=== PATIENT | female | born 1955 | race Caucasian/White ===

== ENCOUNTER → 2017-09-26 | Outpatient (CLI) | payer OTHER ==
[~2017-09-26] MED LIST: ASCO500T3 PO; ATV/1 PO; ATV1 PO; BUSP15TA70 PO; CHOL400T PO; CYCL10TA6 PO; DIPH25TA24 PO; FLUT0.15 NAE; FURO-85 PO; MAGNESIUM CITRATE PO; MULT-506 PO; OXYC-57 PO; OXYC40TA34 PO; POLYSOL4 OP; PRLSR20 PO; PYRIDOXINE PO; REMIFEMIN PO; RXC5 PO; SALMON; SENNTAB23 PO; SENNTAB4 PO; SODIENE PR; TEMA-79 PO; VALA500T39 PO
[2017-09-26 17:50] LABS: HEMATOCRIT 43.8 % (37-47); HEMOGLOBIN 14.9 g/dL (12.0-16.0); MEAN CELL VOLUME 95.8 fL (80-100); MEAN CORPUSCULAR HEMOGLOBIN 32.6 pg (25-34); MEAN PLATELET VOLUME 10.4 fL (7.4-10.4); PLATELET COUNT 244 K/uL (130-400); RED CELL DISTRIBUTION WIDTH CV 13.2 % (11.5-14.5); WHITE BLOOD COUNT 5.68 K/uL (4.8-10.8)
[2017-09-26 18:34] LABS: ALT/SGPT 43 U/L (12-78); AST/SGOT 18 U/L (15-37); BLOOD UREA NITROGEN 16 mg/dl (7-18); CALCIUM 8.9 mg/dl (8.5-10.1); CARBON DIOXIDE 27 mmol/L (21-32); CREATININE 0.75 mg/dl (0.60-1.20); GLUCOSE 98 mg/dl (70-99); POTASSIUM 3.9 mmol/L (3.5-5.1); SODIUM 135 mmol/L (136-145)
[2017-09-26 18:36] LABS: ALKALINE PHOSPHATASE 85 U/L (45-117); TOTAL PROTEIN 6.6 gm/dl (6.4-8.2)
== END | disposition home or self-care (01) ==
LOC: C.LABMFLN 12:28
PROVIDERS: ATTEND Family Medicine
DX: K80.20 Calculus of gallbladder without cholecystitis without obstruction (principal)

== ENCOUNTER 2018-09-19 05:49 | Inpatient (IN) ==
--- NOTE | 2018-09-08 12:51 | PAT Medication Instructions ---
Medication Instructions Date of Service September 08, 2018 Home Medications Magnesium Citrate + Vitamin B 6 1 dose PO BID bupropion HCl 75 mg PO QAM buspirone 15 mg PO TID calcitonin (salmon) 1 spray INTRANASAL DAILY calcium carbonate [Calcium 600] 600 mg PO DAILY cholecalciferol (vitamin D3) 1,000 unit PO DAILY cyclobenzaprine 10 mg PO TID PRN docusate sodium [Stool Softener] 6 tab PO BID fluticasone propionate 1 spray INTRANASAL HS furosemide [Lasix] 20 mg PO QAM lorazepam [Ativan] 0.5 mg PO UD PRN omeprazole magnesium [Prilosec OTC] 20 mg PO BID oxycodone [OxyContin] 40 mg PO BID PRN oxycodone-acetaminophen [Percocet] 1 tab PO UD PRN sennosides [Senna Laxative] 6 tab PO BID PRN temazepam [Restoril] 15 mg PO HS PRN valacyclovir [Valtrex] 500 mg PO BID DO NOT take the morning of surgery Magnesium Citrate + Vitamin B 6 1 dose PO BID calcitonin (salmon) 1 spray INTRANASAL DAILY calcium carbonate [Calcium 600] 600 mg PO DAILY cholecalciferol (vitamin D3) 1,000 unit PO DAILY cyclobenzaprine 10 mg PO TID PRN docusate sodium [Stool Softener] 6 tab PO BID furosemide [Lasix] 20 mg PO QAM sennosides [Senna Laxative] 6 tab PO BID PRN Take morning of surgery With a small sip of water, OTHERWISE NOTHING TO EAT OR DRINK AFTER MIDNIGHT: bupropion HCl 75 mg PO QAM buspirone 15 mg PO TID lorazepam [Ativan] 0.5 mg PO UD PRN (if needed) omeprazole magnesium [Prilosec OTC] 20 mg PO BID oxycodone [OxyContin] 40 mg PO BID PRN (okay to take up to 4 hours prior to surgery if needed) oxycodone-acetaminophen [Percocet] 1 tab PO UD PRN (okay to take up to 4 hours prior to surgery if needed) valacyclovir [Valtrex] 500 mg PO BID Take evening before surgery Magnesium Citrate + Vitamin B 6 1 dose PO BID buspirone 15 mg PO TID cyclobenzaprine 10 mg PO TID PRN docusate sodium [Stool Softener] 6 tab PO BID fluticasone propionate 1 spray INTRANASAL HS lorazepam [Ativan] 0.5 mg PO UD PRN (if needed) omeprazole magnesium [Prilosec OTC] 20 mg PO BID oxycodone [OxyContin] 40 mg PO BID PRN (if needed) oxycodone-acetaminophen [Percocet] 1 tab PO UD PRN (if needed) sennosides [Senna Laxative] 6 tab PO BID PRN (if needed) temazepam [Restoril] 15 mg PO HS PRN (if needed) valacyclovir [Valtrex] 500 mg PO BID Other Notes If you have any questions please call us at [phone] or [phone] or [phone] or [phone]
--- NOTE | 2018-09-08 13:25 | Anesthesiology Consultation ---
Date of Service September 08, 2018 Assessment & Plan (1) Encounter for pre-operative examination: Chart Review Chart Review: Acceptable Risk for Surgery and Patient seen in Pre Admission Testing Teaching & Discussion Pre-Anesthesia Teaching/Discussion Notes: Instructed NPO after midnight before surgery,except medications with 15 cc of water. Medication instructions provided according to the PAT guidelines. History Surgery Operation Date: 09/19/18 07:45 Proposed Procedures p L3-L5 Decomprssion and Fusion, Possible L2-L5 - Sabas Mckeon DO Height/Weight Height: 5 ft Weight: 51 kg Allergies Allergy/AdvReac Type Severity Reaction Status Date / Time Bactrim Allergy Unknown RASH Verified 04/25/15 05:36 sulfamethoxazole Allergy Unknown RASH Verified 09/02/18 11:04 trimethoprim Allergy Unknown RASH Verified 09/02/18 11:04 Medications Home Medications Medication Instructions Recorded Confirmed Last Taken Magnesium Citrate + Vitamin B 6 1 dose PO BID 09/02/18 09/02/18 Unknown bupropion HCl 75 mg PO QAM 09/02/18 09/02/18 09/02/18 buspirone 15 mg PO TID 09/02/18 09/02/18 09/02/18 calcitonin (salmon) 1 spray INTRANASAL DAILY 09/02/18 09/02/18 09/02/18 calcium carbonate [Calcium 600] 600 mg PO DAILY 09/02/18 09/02/18 Unknown cholecalciferol (vitamin D3) 1,000 unit PO DAILY 09/02/18 09/02/18 Unknown [Vitamin D3] cyclobenzaprine 10 mg PO TID PRN 09/02/18 09/02/18 Unknown docusate sodium [Stool Softener] 6 tab PO BID 09/02/18 09/02/18 Unknown fluticasone propionate 1 spray INTRANASAL HS 09/02/18 09/02/18 Unknown furosemide [Lasix] 20 mg PO QAM 09/02/18 09/02/18 09/02/18 lorazepam [Ativan] 0.5 mg PO UD PRN 09/02/18 09/02/18 Unknown omeprazole magnesium [Prilosec OTC] 20 mg PO BID 09/02/18 09/02/18 09/02/18 oxycodone [OxyContin] 40 mg PO BID PRN 09/02/18 09/02/18 09/02/18 oxycodone-acetaminophen [Percocet] 1 tab PO UD PRN 09/02/18 09/02/18 Unknown sennosides [Senna Laxative] 6 tab PO BID PRN 09/02/18 09/02/18 Unknown temazepam [Restoril] 15 mg PO HS PRN 09/02/18 09/02/18 Unknown valacyclovir [Valtrex] 500 mg PO BID 09/02/18 09/02/18 09/02/18 cyclosporine [Restasis] 1 drp OPHTHALMIC (EYE) DAILY 09/08/18 09/08/18 Unknown Past Medical History Medical History Acid reflux CONTROLLED Anxiety Chronic constipation Degenerative disc disease Depression Dysphagia ONLY OCCURS WHEN PATIENT EXTREMELY FATIGUED UNCHANGED X YEARS S/P ACDF (SURGEON AWARE) Emphysema lung PER CXR Hx of cervical cancer "PRE-CANCEROUS" Mild cognitive impairment ?MEDICATION RELATED Multiple hereditary exostoses S/P MULTIPLE ORTHOPEDIC SURGERIES/REMOVALS; PARTICULARLY SENSITIVE LUE Scoliosis Past Family History Family History Grandmother Family history of breast cancer Past Surgical History Surgical History History of cholecystectomy History of colonoscopy History of endoscopy History of neck surgery Anterior cervical C6 corpectomy, C5-C7 fusion= 04/25/15= Grade view 1, MAC 3, ETT 7.0 at [facility] (atraumatic DL x1 without neck flexion/extension) History of orthopedic surgery MULTIPLE DUE TO MULTIPLE HEREDITARY EXOSTOSES Past Anesthesia History Other Per patient, low BP in PACU with prior surgery (unsure of what surgery/when); SDS turned into overnight stay x 1; BP controlled with medical management and patient discharged next day without issue. No similar issue noted per subsequent anesthesia/discharge records with anterior cervical C6 corpectomy, C5-C7 fusion 04/25/15 at [facility]* Daughter- PONV History of PONV Yes Motion Sickness Screening History of Motion Sickness: No Social History Smoking Status: Former smoker tobacco type: cigarettes Do You Dip or Chew Tobacco: No Smoking End Date: QUIT 5+ YEARS AGO Hx Alcohol Use: No Hx Substance Use: No substance use type: does not use Exercise / Class Metabolic Activity II 4-5 Yardwork/Stairs/Walk up hill Review of Systems Patient reports LBP with hip radiation; + LE weakness. Patient denies chest pain, shortness of breath, dyspnea on exertion, cough, wheezing, palpitations. Physical Exam Vital Signs VITALS BP 116/75 P 69 TEMP 98.1 SP02 97%RA RESP 16 PHYSICAL Full neck and c-spine range of motion. Full TMJ range of motion. TMD 3.5 finger breaths Mallampati Score 1 Dentition: full dentures upper/lower; edentulous Lungs: clear throughout to auscultation Cardiac: regular rate and rhythm, no murmurs noted Spine: normal Carotid arteries: negative bruit Extremities: no edema Testing Electrocardiogram Date: 11/07/17 Findings: + NSR @ (60) Chest X-Ray Date: 09/08/18 Findings: + NAD Negative chest. Mild emphysematous change Laboratory Results Blood Type AB Positive 09/08/18 13:45 Antibody Screen NEGATIVE 09/08/18 13:45 PT 10.7 Seconds (9.0-12.0) 09/08/18 13:45 INR 1.0 (0.9-1.1) 09/08/18 13:45 APTT 23.7 Seconds (21.0-31.0) 09/08/18 13:45 Urine Color Yellow 09/08/18 13:45 Urine Appearance Clear (Clear) 09/08/18 13:45 Urine pH 5.0 (4.5-7.5) 09/08/18 13:45 Ur Specific [place] 1.014 (1.000-1.030) 09/08/18 13:45 Urine Protein Negative (Negative) 09/08/18 13:45 Urine Glucose (UA) Negative (Negative) 09/08/18 13:45 Urine Ketones Negative (Negative) 09/08/18 13:45 Urine Nitrite Negative (Negative) 09/08/18 13:45 Ur Leukocyte Esterase Negative (Negative) 09/08/18 13:45 08/05/18 WBC 6.92 H/H 15.1/43.7 PLATELETS 238 SODIUM 139 POTASSIUM 3.9 CHLORIDE 107 CO2 24 BUN 12 CREATININE 0.58 GLUCOSE 88
--- NOTE | 2018-09-08 14:12 | XRay Report ---
XR chest Pre-admission PA/Lat CLINICAL HISTORY: pat preoperative evaluation COMPARISON STUDY: 03/30/2015 FINDINGS: The bones soft tissues and hemidiaphragms are normal. The cardiomediastinal silhouette is n ormal. The lungs are clear. The pulmonary vasculature is normal. Mild emphysematous change IMPRESSION: Negative chest. Mild emphysematous change The above report was generated using voice recognition software. It may contain grammatical, syntax or spelling errors. Electronically signed by: Mario Walters M.D. 09/08/2018 2:11 PM
[2018-09-08 14:54] LABS: Appearance Urine Clear (Clear); Bilirubin Urine Negative (Negative); Blood Urine Negative (Negative); Color Urine Yellow; Glucose Urine UA Negative (Negative); Ketones Urine Negative (Negative); Leukocyte Esterase Urine Negative (Negative); Nitrite Urine Negative (Negative); Protein Urine Negative (Negative); Specific Gravity Urine 1.014 (1.000-1.030); Urobilinogen Urine Negative (Negative)
[2018-09-08 15:03] LABS: Partial Thromboplastin Ratio 0.9; Partial Thromboplastin Time 23.7 Seconds (21.0-31.0); Prothrombin Time 10.7 Seconds (9.0-12.0)
[2018-09-19] MEDS ORDERED: GABAPENTIN 300 MG PO SCH (06:00)
[2018-09-19] MEDS ORDERED: LR 15ML/HR IV SCH (06:00)
[2018-09-19] MEDS ORDERED: CLINDAMYCIN 600 MG/54 ML BAG IV SCH (06:00)
[2018-09-19] MEDS ORDERED: ACETAMINOPHEN 500 MG TAB PO SCH (06:00)
[2018-09-19] MEDS ORDERED: fentaNYL citrate 100 MCG/2 ML VIAL ONE ×2 (06:43→08:18)
[2018-09-19] MEDS ORDERED: MIDAZOLAM HCL 1 MG/ML 2ML VIAL ONE (06:43)
[2018-09-19] MEDS ORDERED: BUPIVACAINE/EPINEPHRINE 0.5% MPF 1:200,000 30 ML VIAL ONE (06:56)
[2018-09-19] MEDS ORDERED: BACITRACIN INJ 50,000 UNIT VIAL ONE (06:56)
[2018-09-19] MEDS ORDERED: PROPOFOL IV EMULSION 10 MG/ML 100 ML VIAL IV ONE (07:05)
[2018-09-19] MEDS ORDERED: SCOPOLAMINE 1.5 MG TDSY ONE (07:30)
--- NOTE | 2018-09-19 07:30 | History & Physical Report ---
Date of Service September 19, 2018 Assessment & Plan (1) Spinal stenosis, lumbar region with neurogenic claudication: L3-L5 decompression and fusion possible L2-L5 Present on Admission?: Yes History of Present Illness Chief Complaint: Back and bilateral leg pain Primary Care Provider: Marlo Francis DO This is a 63-year-old female who presents with chronic persistent back and leg pain. After failing extensive course of nonoperative care she is here for surgical intervention. Allergies Allergy/AdvReac Type Severity Reaction Status Date / Time Bactrim Allergy Unknown RASH Verified 04/25/15 05:36 sulfamethoxazole Allergy Unknown RASH Verified 09/19/18 06:44 trimethoprim Allergy Unknown RASH Verified 09/19/18 06:44 Home Medications Home Medications Medication Instructions Recorded Confirmed Type Magnesium Citrate + Vitamin B 6 1 dose PO BID 09/02/18 09/19/18 History bupropion HCl 75 mg PO QAM 09/02/18 09/19/18 History buspirone 15 mg PO TID 09/02/18 09/19/18 History calcitonin (salmon) 1 spray INTRANASAL DAILY 09/02/18 09/19/18 History calcium carbonate [Calcium 600] 600 mg PO DAILY 09/02/18 09/19/18 History cholecalciferol (vitamin D3) 1,000 unit PO DAILY 09/02/18 09/19/18 History [Vitamin D3] cyclobenzaprine 10 mg PO TID PRN 09/02/18 09/19/18 History docusate sodium [Stool Softener] 6 tab PO BID 09/02/18 09/19/18 History fluticasone propionate 1 spray INTRANASAL HS 09/02/18 09/19/18 History furosemide [Lasix] 20 mg PO QAM 09/02/18 09/19/18 History lorazepam [Ativan] 0.5 mg PO UD PRN 09/02/18 09/19/18 History omeprazole magnesium [Prilosec OTC] 20 mg PO BID 09/02/18 09/19/18 History oxycodone [OxyContin] 40 mg PO BID PRN 09/02/18 09/19/18 History oxycodone-acetaminophen [Percocet] 1 tab PO UD PRN 09/02/18 09/19/18 History sennosides [Senna Laxative] 6 tab PO BID PRN 09/02/18 09/19/18 History temazepam [Restoril] 15 mg PO HS PRN 09/02/18 09/19/18 History valacyclovir [Valtrex] 500 mg PO BID 09/02/18 09/19/18 History cyclosporine [Restasis] 1 drp OPHTHALMIC (EYE) DAILY 09/08/18 09/19/18 History Past Med/Surg History Medical History Acid reflux CONTROLLED Anxiety Chronic constipation Degenerative disc disease Depression Hx of cervical cancer "PRE-CANCEROUS" Multiple hereditary exostoses S/P MULTIPLE ORTHOPEDIC SURGERIES/REMOVALS; PARTICULARLY SENSITIVE LUE Scoliosis Dysphagia ONLY OCCURS WHEN PATIENT EXTREMELY FATIGUED UNCHANGED X YEARS S/P ACDF (SURGEON AWARE) Emphysema lung PER CXR Mild cognitive impairment ?MEDICATION RELATED Surgical History History of appendectomy (Acute) History of cholecystectomy History of colonoscopy History of endoscopy History of neck surgery Anterior cervical C6 corpectomy, C5-C7 fusion= 04/25/15= Grade view 1, MAC 3, ETT 7.0 at [facility] (atraumatic DL x1 without neck flexion/extension) History of orthopedic surgery MULTIPLE DUE TO MULTIPLE HEREDITARY EXOSTOSES Family History Grandmother Family history of breast cancer Social History Preferred Language: Swedish Communication Ability: Effective Communication Ability Comment: MEMORY PROBLEM/LIKES TO HAVE DAUGHTER PRESENT WHEN IMPORTANT INFO DISCUSSED Site Operations Manager Required: No Beliefs That Will Affect Care: None Current Living Situation: Alone Other Information That Helps Us Care for You: Yes (MEMORY PROBLEM /WITH IMPORTANT INFO LIKES TO HAVE DAUGHTER PRESENT) Feels Safe at Home: Yes Smoking Status: Former smoker Tobacco Type: cigarettes Do You Dip or Chew Tobacco: No Smoking End Date: QUIT 5+ YEARS AGO Hx Alcohol Use: No Hx Substance Use: No Physical Exam Vital Signs (Past 24 Hours): Last Vital Signs Temp 36.7 C 09/19/18 06:45 Pulse 65 09/19/18 06:45 Resp 18 09/19/18 06:45 BP 118/73 09/19/18 06:45 Pulse Ox 97 09/19/18 06:45
--- NOTE | 2018-09-19 07:30 | History & Physical Bridge Note ---
Date of Service September 19, 2018 History & Physical Bridge Note I have examined the patient, reviewed the History & Physical and in the interval since the performance of the History & Physical I have noted the following changes of clinical significance: no changes noted
[2018-09-19] MEDS ORDERED: SCOPOLAMINE 1.5 MG TDSY TD ONE ×2 (07:37→07:45)
[2018-09-19] MEDS ORDERED: PHENYLEPHRINE 100MCG/ML 5ML SYR IV PRN (07:45)
[2018-09-19] MEDS ORDERED: ONDANSETRON INJ 2 MG/ML 2 ML VIAL IV PRN (07:45)
[2018-09-19] MEDS ORDERED: ATROPINE SULFATE 0.1 MG/ML 10ML SYR IV PRN (07:45)
[2018-09-19] MEDS ORDERED: ePHEDrine sulfate 50 MG/ML AMP IV PRN (07:45)
[2018-09-19] MEDS ORDERED: PROMETHAZINE HCL 12.5 MG in SODIUM CHLORIDE 0.9% 50 ML IV PRN ×2 (07:45→12:45)
[2018-09-19] MEDS ORDERED: HYDROmorphone INJ 2 MG/ML SYR/VIAL ONE (08:18)
[2018-09-19] MEDS ORDERED: PROPOFOL IV EMULSION 10 MG/ML 20 ML VIAL IV ONE (08:19)
[2018-09-19] MEDS ORDERED: LIDOCAINE HCL 2% 2 ML VIAL/AMP(20MG/ML) INFIL ONE (08:19)
[2018-09-19] MEDS ORDERED: ROCURONIUM BROMIDE 10 MG/ML 5 ML VIAL ONE (08:19)
[2018-09-19] MEDS ORDERED: NEOSTIGMINE METHYLSULFATE 1 MG/ML 10ML VIAL ONE (08:19)
[2018-09-19] MEDS ORDERED: raNITIdine HCl 25 MG/ML VIAL IV ONE ×2 (08:19→10:50)
[2018-09-19] MEDS ORDERED: DEXAMETHASONE SOD INJ 4 MG/ML VIAL ONE (08:19)
[2018-09-19] MEDS ORDERED: GLYCOPYRROLATE 0.2 MG/ML VIAL ONE (08:19)
[2018-09-19] MEDS ORDERED: ONDANSETRON INJ 2 MG/ML 2 ML VIAL ONE (08:19)
[2018-09-19] MEDS ORDERED: FLOSEAL HEMOSTATIC MATRIX 10ML TOP ONE (10:05)
[2018-09-19] MEDS ORDERED: ePHEDrine sulfate 50 MG/ML SYR ONE (10:07)
[2018-09-19] MEDS ORDERED: ePHEDrine sulfate 50 MG/ML AMP ONE (10:07)
[2018-09-19] MEDS ORDERED: KETOROLAC 30 MG/ML VIAL ONE (10:07)
[2018-09-19] MEDS ORDERED: PHENYLEPHRINE 100MCG/ML 5ML SYR ONE (10:07)
--- NOTE | 2018-09-19 10:20 | Fluoroscopy Report ---
LUMBAR SPINE, INTRAOPERATIVE FLUOROSCOPY HISTORY: L2-L5 decompression and fusion. FLUOROSCOPY TIME: 23 seconds. FINDINGS: Intraoperative fluoroscopy was provided for the lumbar spine. 3 fluoroscopic spot images we re obtained. Posterior decompression fusion from L2 through L5 with pedicle screws and rods. The hard daugherty appears intact. IMPRESSION: Fluoroscopy provided for a L2-L5 posterior decompression and fusion. Electronically signed by: Sarath Jean-Baptiste M.D. 09/19/2018 10:19 AM
--- NOTE | 2018-09-19 10:29 | Operative Report ---
Post Operative Report Pre & Post Diagnosis Operation Date: 09/19/18 07:45 Pre-Op Diagnosis: Spinal stenosis, lumbar region with neurogenic claudication Post-Op Diagnosis: Spinal stenosis, lumbar region with neurogenic claudication Procedure Operation Date: 09/19/18 07:45 Actual Procedures #1 lumbar decompression medial facetectomies foraminotomies L2-3 L3-4 L4-5 per #2 posterior spinal fusion L2-3 L3-4 L4-5 per #3 placement posterior segmental instrumentation L2-3 L3-4 L4-5 per #4 interbody fusion L4-5 per #5 placement of titanium 9 x 22 mm cage L4-5 per #6 placement of local autograft in the posterior lateral gutters. #7 placement infuse collagen sponge bone mass graft in the posterior lateral gutters and ostial amp and interbody space. Surgeon Sabas Mckeon DO Satellite Instruction Facilitator None Estimated Blood Loss 225 Findings Consistent with Post-Op Diagnosis Specimens None Indications This is a 63 female presents with severe multilevel spinal stenosis after failing extensive course of nonoperative care presents for surgical intervention. Description of Procedure Patient was met with preoperatively case discussed all questions addressed. After informed consent obtained patient was taken to the operative suite underwent intubation and placed in the prone position the Lars table on top of the Kev frame. All bony prominences well-padded eyes inspected to ensure no external pressure placed upon but this point the lumbar spine was prepped and draped in the normal sterile fashion. Sharp dissection with the assistance of Bovie cautery was performed down to and exposing the lamina and transverse processes of L2 L3-L4-L5 bilaterally. From a caudal to cephalad fashion complete laminectomy of 4 L3 and L2 was performed including bilateral medial facetectomies and foraminotomies. After complete decompression pedicle screws were then placed in L2 L3-L4-L5 bilaterally with the assistance of fluoroscopy in the way of a transforaminal approach on the right complete discectomy was performed in plate coated to subcortical mean bone and a 9 x 22 mm titanium cage filled with ostium bone graft tapped in position. Proper sized rods were then placed locked in position bilaterally. Please note intraoperative neuro monitoring was used throughout the entire procedure. The screws were tested and to be within normal limits. Incision was then closed with 1 Vicryl in the fascia 2-0 Vicryl subcutaneous and 4 Monocryl for final skin closure. Steri- Strips dressings placed. Patient will continue to PACU stable condition. I attest to the content of the Intraoperative Record and any orders documented therein. Any exceptions are noted below.
[2018-09-19] MEDS: fentaNYL citrate 100 MCG/2 ML VIAL IV PRN ×4 (10:55→11:15)
[2018-09-19] MEDS: HYDROmorphone INJ 1 MG/ML SYRINGE IV PRN ×10 (11:19→22:19)
--- NOTE | 2018-09-19 12:11 | Anesthesiology Progress Note ---
Date of Service September 19, 2018 Anesthesia Post Procedure Vital Signs Vital Signs: Temp Pulse Pulse Resp BP Pulse Ox 09/19/18 11:25 56 L 18 128/71 100 09/19/18 11:15 67 18 125/73 100 09/19/18 11:05 66 16 132/73 100 09/19/18 10:55 58 L 16 133/75 100 09/19/18 10:45 60 16 143/79 H 100 09/19/18 10:35 36 C L 77 14 130/75 100 09/19/18 06:45 36.7 C 65 18 118/73 97 Pain Intensity Lower Back: Pain Intensity: 6 Notes Mental Status: alert / awake / arousable Patient Amnestic to Procedure: Yes Nausea / Vomiting: adequately controlled Pain: adequately controlled Airway Patency, RR, SpO2: stable & adequate BP & HR: stable & adequate Hydration State: stable & adequate Anesthetic Complications: no major complications apparent Notes: Awake, doing well, no complaints. VSS.
[2018-09-19] MEDS ORDERED: SENNA 8.6 MG TAB PO PRN (12:45)
[2018-09-19] MEDS ORDERED: BISACODYL 10 MG SUPP PR PRN (12:45)
[2018-09-19] MEDS ORDERED: TEMAZEPAM 15 MG CAPSULE PO PRN (12:45)
[2018-09-19] MEDS ORDERED: ONDANSETRON 4 MG TAB PO PRN (12:45)
[2018-09-19] MEDS ORDERED: CYCLOBENZAPRINE HCL 10 MG TAB PO PRN (12:45)
[2018-09-19] MEDS ORDERED: DO NOT ADMINISTER PNEUMOCOCCAL VACCINE PRN (12:45)
[2018-09-19] MEDS ORDERED: METOCLOPRAMIDE HCL INJ 5 MG/ML 2 ML VIAL IV PRN (12:45)
[2018-09-19] MEDS ORDERED: LORazepam 0.5 MG TAB PO PRN (12:45)
[2018-09-19] MEDS ORDERED: SOD PHOSPHATE/SOD BIPHOSPHATE ENEMA 132 ML BTL PR PRN (12:45)
[2018-09-19] MEDS ORDERED: ACETAMINOPHEN 1,000 MG/100 ML VIAL IV PRN (12:45)
[2018-09-19] MEDS ORDERED: ACETAMINOPHEN 500 MG TAB PO PRN (12:45)
[2018-09-19] MEDS ORDERED: DO NOT ADMINISTER FLU VACCINE PRN (12:45)
[2018-09-19] MEDS ORDERED: ALUMINUM/MAGNESIUM SUSP 30 ML UDC PO PRN (12:45)
[2018-09-19] MEDS ORDERED: MAGNESIUM HYDROXIDE SUSP 30 ML UDC PO PRN (12:45)
[2018-09-19] MEDS ORDERED: FAMOTIDINE 20 MG TAB PO PRN (12:45)
[2018-09-19] MEDS ORDERED: LORazepam 0.5 MG/1 ML VIAL IV PRN (12:45)
[2018-09-19] MEDS: OXYCODONE HCL IR 5 MG TAB (IMMEDIATE RELEASE) PO PRN ×3 (13:48→21:40)
[2018-09-19] MEDS: ONDANSETRON INJ 2 MG/ML 2 ML VIAL IV PRN (13:48)
[2018-09-19] MEDS ORDERED: ESMOLOL HCL INJ 10 MG/ML 10ML VIAL IV ONE (14:02)
[2018-09-19] MEDS: BusPIRone 15 MG TAB PO SCH ×2 (14:48→21:37)
[2018-09-19] MEDS ORDERED: CHECK SCOPOLAMINE PATCH PLACEMENT SCH ×2 (16:00)
[2018-09-19] MEDS: LACTATED RINGER'S 1,000 ML IV SCH (16:55)
[2018-09-19] MEDS: CLINDAMYCIN 600 MG in DEXTROSE 5% 50 ML IV SCH (16:55)
[2018-09-19] MEDS: RESTASIS - ORDER AWAITING ACTION SCH (16:56)
--- NOTE | 2018-09-19 17:42 | Consultation ---
Date of Consultation September 19, 2018 Assessment & Plan (1) Spinal stenosis, lumbar region with neurogenic claudication: S/p surgery/lumbar fusion -post-op management as per Ortho -pain control bowel regimen adjusted to add senna 6 tabs bid and docusate 6 tabs bid (2) Depression: stable -continue wellbutrin and buspirone (3) Anxiety: -continue home meds as above -temapazepam qhs (4) Acid reflux: -continue famotidine bid (5) Chronic constipation: bowel regimen as above -secondary to chronic opioids (6) Multiple hereditary exostoses: s/p multple surgeries, caused deformities of left sided long bones in childhood -continue chronic pain meds (7) Vitamin D deficiency: Vit D level 16 on recent labs --hasn't started Vit D 5000 units daily yet but will after discharge (8) Opioid dependence: on chronic Oxycontin, oxycodone -continue meds while here (9) Chronic pain: due to exostoses, neck pain, back pain (10) Allergic rhinitis: continue nasal spray (11) Osteoporosis: continue calcitonin (12) DVT prophylaxis: SCDs Dispo-remain overnight History of Present Illness This pt is a 63 yo female with a h/o multiple hereditary exostoses, anxiety/depression, GERD, chronic pain and opioid dependence, chronic constipation, scoliosis, lumbar spinal stenosis, allergic rhinitis, and Vit D deficiency, who is here post-op from Lumbar fusion. DOing very well post-op. Has some pain. Is requesting her constipation meds be corrected--> she actually takes 6 senna and 6 docusate pills twice daily at 1700 and 2100. Denies N/V, no CP or SOB. Attending Physician: Sabas Mckeon DO Allergies Allergy/AdvReac Type Severity Reaction Status Date / Time Bactrim Allergy Unknown RASH Verified 04/25/15 05:36 sulfamethoxazole Allergy Unknown RASH Verified 09/19/18 06:44 trimethoprim Allergy Unknown RASH Verified 09/19/18 06:44 Home Medications Home Medications Medication Instructions Recorded Confirmed Type Magnesium Citrate + Vitamin B 6 1 dose PO BID 09/02/18 09/19/18 History bupropion HCl 75 mg PO QAM 09/02/18 09/19/18 History buspirone 15 mg PO TID 09/02/18 09/19/18 History calcitonin (salmon) 1 spray INTRANASAL DAILY 09/02/18 09/19/18 History calcium carbonate [Calcium 600] 600 mg PO DAILY 09/02/18 09/19/18 History cholecalciferol (vitamin D3) 1,000 unit PO DAILY 09/02/18 09/19/18 History [Vitamin D3] cyclobenzaprine 10 mg PO TID PRN 09/02/18 09/19/18 History docusate sodium [Stool Softener] 6 tab PO BID 09/02/18 09/19/18 History fluticasone propionate 1 spray INTRANASAL HS 09/02/18 09/19/18 History furosemide [Lasix] 20 mg PO QAM 09/02/18 09/19/18 History lorazepam [Ativan] 0.5 mg PO UD PRN 09/02/18 09/19/18 History omeprazole magnesium [Prilosec OTC] 20 mg PO BID 09/02/18 09/19/18 History oxycodone [OxyContin] 40 mg PO BID PRN 09/02/18 09/19/18 History oxycodone-acetaminophen [Percocet] 1 tab PO UD PRN 09/02/18 09/19/18 History sennosides [Senna Laxative] 6 tab PO BID PRN 09/02/18 09/19/18 History temazepam [Restoril] 15 mg PO HS PRN 09/02/18 09/19/18 History valacyclovir [Valtrex] 500 mg PO BID 09/02/18 09/19/18 History cyclosporine [Restasis] 1 drp OPHTHALMIC (EYE) DAILY 09/08/18 09/19/18 History Patient History Medical History Acid reflux CONTROLLED Allergic rhinitis Anxiety Chronic constipation Chronic pain Degenerative disc disease Depression Hx of cervical cancer "PRE-CANCEROUS" Multiple hereditary exostoses S/P MULTIPLE ORTHOPEDIC SURGERIES/REMOVALS; PARTICULARLY SENSITIVE LUE Opioid dependence Osteoporosis Scoliosis Vitamin D deficiency Dysphagia ONLY OCCURS WHEN PATIENT EXTREMELY FATIGUED UNCHANGED X YEARS S/P ACDF (SURGEON AWARE) Emphysema lung PER CXR Mild cognitive impairment ?MEDICATION RELATED Surgical History History of appendectomy (Acute) History of cholecystectomy History of colonoscopy History of endoscopy History of neck surgery Anterior cervical C6 corpectomy, C5-C7 fusion= 04/25/15= Grade view 1, MAC 3, ETT 7.0 at [facility] (atraumatic DL x1 without neck flexion/extension) History of orthopedic surgery MULTIPLE DUE TO MULTIPLE HEREDITARY EXOSTOSES Family History Grandmother Family history of breast cancer Social History Preferred Language: Bahraini Communication Ability: Effective Communication Ability Comment: MEMORY PROBLEM/LIKES TO HAVE DAUGHTER PRESENT WHEN IMPORTANT INFO DISCUSSED Risk Officer Required: No Beliefs That Will Affect Care: None Current Living Situation: Alone Other Information That Helps Us Care for You: Yes (MEMORY PROBLEM /WITH IMPORTANT INFO LIKES TO HAVE DAUGHTER PRESENT) Feels Safe at Home: Yes Smoking Status: Former smoker Tobacco Type: cigarettes Do You Dip or Chew Tobacco: No Smoking End Date: QUIT 5+ YEARS AGO Hx Alcohol Use: No Hx Substance Use: No Review of Systems Review of Systems: All systems reviewed & are unremarkable except as noted in HPI & below Physical Exam Constitutional: WD/WN, vitals as above Eyes: PERRL, conjunctivae normal, anicteric sclerae ENMT: external ear and nose normal, oropharynx normal Neck: trachea midline, no thyromegaly Respiratory: normal respiratory effort, lungs clear to auscultation Cardiovascular: RRR, no murmur, no edema Gastrointestinal (Abdomen): normal bowel sounds, soft, nontender, no hepatosplenomegaly Musculoskeletal: Extremities: + extremities abnormal to inspection (left forearm bowed and shorter, left hand smaller than right), no cyanosis and no clubbing Back with dressing c/d/i Skin: no rashes, warm and dry Neurologic: moves all extremities and awake; no focal motor deficits Psychiatric: A+Ox3, euthymic affect Results & Data Vital Signs (Past 12 Hours) Vital Signs Temp Pulse Pulse Pulse Resp BP Pulse Ox 09/19/18 15:33 36.8 C 94 H 19 104/65 97 09/19/18 14:26 98 H 18 106/69 98 09/19/18 13:30 72 18 112/62 95 09/19/18 12:56 73 14 116/71 92 09/19/18 12:30 36.5 C 71 14 125/73 98 09/19/18 12:14 36.6 C 58 L 16 122/67 100 09/19/18 11:25 56 L 18 128/71 100 09/19/18 11:15 67 18 125/73 100 09/19/18 11:05 66 16 132/73 100 09/19/18 10:55 58 L 16 133/75 100 09/19/18 10:45 60 16 143/79 H 100 09/19/18 10:35 36 C L 77 14 130/75 100 09/19/18 06:45 36.7 C 65 18 118/73 97
[2018-09-19] MEDS: DOCUSATE SODIUM 100 MG CAP PO SCH ×2 (18:34→21:38)
[2018-09-19] MEDS: SENNA 8.6 MG TAB PO SCH ×2 (18:35→21:38)
[2018-09-19] MEDS ORDERED: DOCUSATE SODIUM/SENNA 50/8.6MG TAB PO SCH (21:00)
[2018-09-19] MEDS: OXYCODONE HCL 40 MG TABCR (OXYCONTIN) PO SCH (21:37)
[2018-09-19] MEDS: FLUTICASONE PROPIONATE NA SPR 16 GM BTL SCH (21:37)
[2018-09-19] MEDS: VALACYCLOVIR HCL 500 MG TABLET PO SCH (21:38)
[2018-09-20] MEDS: CLINDAMYCIN 600 MG in DEXTROSE 5% 50 ML IV SCH (00:13)
[2018-09-20] MEDS: RESTASIS - ORDER AWAITING ACTION SCH ×4 (00:17→23:50)
[2018-09-20] MEDS: HYDROmorphone INJ 1 MG/ML SYRINGE IV PRN ×5 (01:47→21:30)
[2018-09-20] MEDS: POLYETHYLENE (MIRALAX) 17 GM PACK PO SCH ×4 (05:43→23:12)
[2018-09-20] MEDS: OXYCODONE HCL IR 5 MG TAB (IMMEDIATE RELEASE) PO PRN ×3 (05:45→15:43)
[2018-09-20 06:32] LABS: Eosinophils # (auto) 0.06 K/uL (0-0.5); Eosinophils % (auto) 0.8 %; Hematocrit (blood only) 30.2 % (37-47); Hemoglobin 10.4 g/dL (12.0-16.0); Immature Granulocytes # (auto) 0.02 K/uL (0.00-0.02); Immature Granulocytes % (auto) 0.3 %; Lymphocytes # (auto) 1.56 K/uL (1.2-3.4); Lymphocytes % (auto) 21.4 %; Mean Corpuscular Hgb Conc 34.4 g/dL (32-36); Mean Corpuscular Volume 95.9 fL (80-100); Mean Platelet Volume 9.8 fL (7.4-10.4); Monocytes % (auto) 6.9 %; Neutrophils # (auto) 5.15 K/uL (1.4-6.5); Neutrophils % (auto) 70.6 %; Platelet Count 173 K/uL (130-400); RDW Coefficient of Variation 12.8 % (11.5-14.5); RDW Standard Deviation 44.6 fL (36.4-46.3); Red Blood Count 3.15 M/uL (4.2-5.4); White Blood Count 7.29 K/uL (4.8-10.8)
[2018-09-20 06:58] LABS: BUN Creatinine Ratio 13.3 (10-20); Calcium 8.3 mg/dl (8.5-10.1); Est GFR (Non-African American) 93.2; Potassium 4.2 mmol/L (3.5-5.1)
[2018-09-20] MEDS: ONDANSETRON INJ 2 MG/ML 2 ML VIAL IV PRN ×2 (08:13→21:44)
[2018-09-20] MEDS: BusPIRone 15 MG TAB PO SCH ×3 (09:36→21:43)
[2018-09-20] MEDS: CALCIUM 600MG + VIT D 400 IU TAB PO SCH (09:36)
[2018-09-20] MEDS: FUROSEMIDE 20 MG TAB PO SCH (09:37)
[2018-09-20] MEDS: CALCITONIN SALMON NA 200 IU/AC 3.7 ML BTL SCH (09:37)
[2018-09-20] MEDS: OXYCODONE HCL 40 MG TABCR (OXYCONTIN) PO SCH ×2 (09:38→21:44)
[2018-09-20] MEDS: buPROPion HCl 75 MG TABLET PO SCH (09:39)
[2018-09-20] MEDS: VALACYCLOVIR HCL 500 MG TABLET PO SCH ×2 (09:40→21:43)
[2018-09-20] MEDS: cycloSPORINE (RESTASIS) OP SCH ×2 (09:41→21:44)
--- NOTE | 2018-09-20 09:48 | Orthopedic Progress Note ---
Date of Service September 20, 2018 Assessment & Plan (1) Acute blood loss as cause of postoperative anemia: Present on Admission?: No (2) Spinal stenosis, lumbar region with neurogenic claudication: Patient status post multilevel lumbar depression fusion per plan at this time will initiate physical therapy monitor ANNA MARIE output anticipate discharge Saturday. Present on Admission?: Yes Subjective Back pain is controlled leg symptoms improved. Physical Exam Physical Exam: On exam she has good strength testing is sitting the chair at the bedside. Appears comfortable. Results & Data Vital Signs (Past 12 Hours) Vital Signs Temp Pulse Resp BP Pulse Ox 09/20/18 07:16 37.4 C 85 18 107/71 94 09/20/18 03:07 37.5 C 89 16 91/56 L 95 09/20/18 00:27 80 99/63 L 09/19/18 23:47 37.5 C 92 H 16 109/67 96
--- NOTE | 2018-09-20 14:49 | Hospitalist Progress Note ---
Date of Service September 20, 2018 Assessment & Plan (1) Spinal stenosis, lumbar region with neurogenic claudication: S/p surgery/lumbar fusion -post-op management as per Ortho -pain control -Continue aggressive bowel regimen with her usual senna and docusate plus MiraLAX -ANNA MARIE drain still in place -PT/OT -Plan for discharge likely on Saturday (2) Depression: stable -continue wellbutrin and buspirone (3) Anxiety: -continue home meds as above -temazepam qhs (4) Acid reflux: -continue famotidine bid (5) Chronic constipation: bowel regimen as above -secondary to chronic opioids (6) Multiple hereditary exostoses: s/p multple surgeries, 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 Please feel free to reconsult or call with any acute concerns or new issues. Subjective Patient having pain in lower back but is controlled with Dilaudid. She has not yet moved her bowels. She had some mild nausea this morning which is now improved. She is tolerating p.o. Denies chest pain or shortness of breath. No headache or lightheadedness. She ambulating the hallways today. Review of Systems Review of Systems: All systems reviewed & are unremarkable except as noted in HPI & below Physical Exam Constitutional: WD/WN, vitals as above Eyes: PERRL, conjunctivae normal, anicteric sclerae ENMT: external ear and nose normal, oropharynx normal Neck: trachea midline, no thyromegaly Respiratory: normal respiratory effort, lungs clear to auscultation Cardiovascular: RRR, no murmur, no edema Gastrointestinal (Abdomen): normal bowel sounds, soft, nontender, no hepatosplenomegaly Musculoskeletal: Extremities: + extremities abnormal to inspection (left forearm bowed and shorter, left hand smaller than right), no cyanosis and no clubbing Skin: no rashes, warm and dry Neurologic: moves all extremities and awake; no focal motor deficits Psychiatric: A+Ox3, euthymic affect Results & Data Vital Signs (Past 12 Hours) Vital Signs Temp Pulse Resp BP Pulse Ox 09/20/18 07:16 37.4 C 85 18 107/71 94 09/20/18 03:07 37.5 C 89 16 91/56 L 95 Laboratory Results 09/20/18 09/20/18 09/19/18 Range/Units 06:11 06:11 06:14 WBC 7.29 (4.8-10.8) K/uL RBC 3.15 L (4.2-5.4) M/uL Hgb 10.4 L (12.0-16.0) g/dL Hct 30.2 L (37-47) % MCV 95.9 (80-100) fL MCH 33.0 (25-34) pg MCHC 34.4 (32-36) g/dL RDW Std Deviation 44.6 (36.4-46.3) fL RDW Coeff of Mariella 12.8 (11.5-14.5) % Plt Count 173 (130-400) K/uL MPV 9.8 (7.4-10.4) fL Immature Gran % (Auto) 0.3 % Neut % (Auto) 70.6 % Lymph % (Auto) 21.4 % Stoddard % (Auto) 6.9 % Eos % (Auto) 0.8 % Baso % (Auto) 0.0 % Immature Gran # (Auto) 0.02 (0.00-0.02) K/uL Neut # (Auto) 5.15 (1.4-6.5) K/uL Lymph # (Auto) 1.56 (1.2-3.4) K/uL Stoddard # (Auto) 0.50 (0.11-0.59) K/uL Eos # (Auto) 0.06 (0-0.5) K/uL Baso # (Auto) 0.00 (0-0.2) K/uL Sodium 136 (136-145) mmol/L Potassium 4.2 (3.5-5.1) mmol/L Chloride 103 (98-107) mmol/L Carbon Dioxide 25 (21-32) mmol/L Anion Gap 8.0 (3-11) BUN 9 (7-18) mg/dl Creatinine 0.65 (0.6-1.2) mg/dl Est Cr Clr Drug Dosing 62.0 ml/min Est GFR ( Amer) 108.0 Est GFR (Non-Af Amer) 93.2 BUN/Creatinine Ratio 13.3 (10-20) Glucose 103 H (70-99) mg/dl Calcium 8.3 L (8.5-10.1) mg/dl Hepatitis C Ab Screen Neg (Neg)
[2018-09-20] MEDS: LACTATED RINGER'S 1,000 ML IV SCH (17:02)
[2018-09-20] MEDS: SENNA 8.6 MG TAB PO SCH ×2 (17:18→21:42)
[2018-09-20] MEDS: DOCUSATE SODIUM 100 MG CAP PO SCH ×2 (17:19→21:43)
[2018-09-20] MEDS: FLUTICASONE PROPIONATE NA SPR 16 GM BTL SCH (21:43)
[2018-09-21] MEDS: OXYCODONE HCL IR 5 MG TAB (IMMEDIATE RELEASE) PO PRN ×3 (04:11→17:32)
[2018-09-21] MEDS: POLYETHYLENE (MIRALAX) 17 GM PACK PO SCH ×3 (06:04→17:35)
[2018-09-21] MEDS: HYDROmorphone INJ 1 MG/ML SYRINGE IV PRN ×3 (06:15→14:32)
[2018-09-21] MEDS: RESTASIS - ORDER AWAITING ACTION SCH ×2 (07:22→15:11)
[2018-09-21] MEDS: cycloSPORINE (RESTASIS) OP SCH ×2 (07:32→20:17)
[2018-09-21] MEDS: buPROPion HCl 75 MG TABLET PO SCH (07:32)
[2018-09-21] MEDS: OXYCODONE HCL 40 MG TABCR (OXYCONTIN) PO SCH ×2 (07:32→20:16)
[2018-09-21] MEDS: FUROSEMIDE 20 MG TAB PO SCH (07:32)
[2018-09-21] MEDS: VALACYCLOVIR HCL 500 MG TABLET PO SCH ×2 (07:32→20:16)
[2018-09-21] MEDS: BusPIRone 15 MG TAB PO SCH ×3 (07:33→20:16)
[2018-09-21] MEDS: CALCITONIN SALMON NA 200 IU/AC 3.7 ML BTL SCH (07:33)
[2018-09-21] MEDS: CALCIUM 600MG + VIT D 400 IU TAB PO SCH (07:34)
--- NOTE | 2018-09-21 10:36 | Orthopedic Progress Note ---
Date of Service September 21, 2018 Assessment & Plan (1) Spinal stenosis, lumbar region with neurogenic claudication: This time we will continue physical therapy today monitor ANNA MARIE output. Anticipate discharge home tomorrow. I did discuss with this patient her narcotic requirements. She understands that she is a significant tolerance. She is going to maintain the 40 mg Roscoe twice daily with oxycodone for breakthrough pain upon discharge. She understands agrees with this plan. Anticipate discharge home tomorrow. Present on Admission?: Yes Subjective Back pain is controlled leg symptoms improved. Physical Exam Physical Exam: Patient is in the chair at the bedside. She is good strength testing. Appears comfortable. Results & Data Vital Signs (Past 12 Hours) Vital Signs Temp Pulse Resp BP Pulse Ox 09/21/18 07:28 37.1 C 90 18 109/68 98 09/20/18 23:10 37.3 C 100 H 16 123/78 93
[2018-09-21] MEDS: ONDANSETRON INJ 2 MG/ML 2 ML VIAL IV PRN (15:22)
[2018-09-21] MEDS: SENNA 8.6 MG TAB PO SCH ×2 (17:34→21:59)
[2018-09-21] MEDS: DOCUSATE SODIUM 100 MG CAP PO SCH ×2 (17:34→21:59)
[2018-09-21] MEDS: FLUTICASONE PROPIONATE NA SPR 16 GM BTL SCH (20:18)
[2018-09-22] MEDS: RESTASIS - ORDER AWAITING ACTION SCH ×2 (00:09→08:55)
[2018-09-22] MEDS: POLYETHYLENE (MIRALAX) 17 GM PACK PO SCH ×4 (00:14→20:13)
[2018-09-22] MEDS: HYDROmorphone INJ 1 MG/ML SYRINGE IV PRN ×3 (00:14→13:56)
[2018-09-22] MEDS: ONDANSETRON INJ 2 MG/ML 2 ML VIAL IV PRN ×3 (00:14→16:16)
[2018-09-22] MEDS: OXYCODONE HCL IR 5 MG TAB (IMMEDIATE RELEASE) PO PRN ×2 (03:41→11:26)
[2018-09-22] MEDS: cycloSPORINE (RESTASIS) OP SCH ×2 (07:36→20:16)
[2018-09-22] MEDS: BusPIRone 15 MG TAB PO SCH ×3 (08:53→20:13)
[2018-09-22] MEDS: CALCIUM 600MG + VIT D 400 IU TAB PO SCH (08:53)
[2018-09-22] MEDS: FUROSEMIDE 20 MG TAB PO SCH (08:53)
[2018-09-22] MEDS: CALCITONIN SALMON NA 200 IU/AC 3.7 ML BTL SCH (08:53)
[2018-09-22] MEDS: OXYCODONE HCL 40 MG TABCR (OXYCONTIN) PO SCH ×2 (08:54→20:14)
[2018-09-22] MEDS: buPROPion HCl 75 MG TABLET PO SCH (08:54)
[2018-09-22] MEDS: VALACYCLOVIR HCL 500 MG TABLET PO SCH ×2 (08:54→20:15)
[2018-09-22] MEDS ORDERED: MAGNESIUM CITRATE 296 ML/BTL PO STA (13:25)
--- NOTE | 2018-09-22 13:54 | Orthopedic Progress Note ---
Date of Service September 22, 2018 Assessment & Plan (1) Spinal stenosis, lumbar region with neurogenic claudication: We will continue to work on pain control today. We will work on aggressive bowel regimen. DVT prophylaxis is informed hats and SCDs. Continue ambulation. Anticipate discharge home tomorrow. Supervising Physician Co-Signing Physician Notes Dr. Sabas Mckeon Subjective Patient is postoperative day 3 multilevel lumbar decompression fusion. She is struggling with pain control today. Back pain only. No radicular leg pain. Today in physical therapy she is having 600 feet. She is passing flatus but no bowel movement yet. ANNA MARIE drain output last shift was 10 cc. Review of Systems Review of Systems: All systems reviewed & are unremarkable except as noted in HPI & below Physical Exam Physical Exam: She is lying in bed. She is seen in conjunction with her daughter. She is in no obvious distress. Lumbar dressing is clean dry and intact. Lower extremities neurovascular intact. Calf is soft nontender. Results & Data Vital Signs (Past 12 Hours) Vital Signs Temp Pulse Resp BP Pulse Ox 09/22/18 11:45 37.3 C 98 H 12 122/68 98 09/22/18 07:50 36.9 C 87 13 122/74 94
[2018-09-22] MEDS: SENNA 8.6 MG TAB PO SCH ×2 (18:41→21:48)
[2018-09-22] MEDS: DOCUSATE SODIUM 100 MG CAP PO SCH ×2 (18:41→21:47)
[2018-09-22] MEDS: FLUTICASONE PROPIONATE NA SPR 16 GM BTL SCH (20:14)
--- OUTSIDE RECORDS SUMMARY | 2018-09-22 21:48 | External Medical Summary | Continuity of Care Document ---
:1955 Author Name Johanna Stevens, Provider Address Unavailable Unavailable , Care Team Providers Name Role Phone Marlo Nieto DO Unavailable [email or web address] MARLO NIETO Unavailable Unavailable JEREMIAH Unavailable Unavailable Rachelle WORTHY Unavailable Unavailable Rachelle SKELTON Unavailable Unavailable Unavailable Unavailable Unavailable Problems Hirsutism (704.1) (L68.0) Paresthesias (782.0) (R20.2) Urinary symptom or sign (788.99) (R39.9) Thoracic back pain (724.1) (M54.6) Right upper quadrant abdominal pain of unknown etiology (789 .01) (R10.11) Gallstones (574.20) (K80.20) Genital herpes (054.10) (A60.00) Abnormal x-ray of pelvis (793.6) (R93.7) Need for immunization against influenza (V04.81) (Z23) Mild cognitive impairment (331.83) (G31.84) Osteoporosis (733.00) (M81.0) Dry eyes, bilateral (375.15) (H04.123) Memory loss (780.93) (R41.3) Medicare annual wellness visit, initial (V70.0) (Z00.00) Acid reflux (530.81) (K21.9) Hyperlipidemia (272.4) (E78.5) Vitamin D deficiency (268.9) (E55.9) Anxiety (300.00) (F41.9) Arthritis (716.90) (M19.90) Bony exostosis (726.91) (M89.8X9) Cervical disc disease (722.91) (M50.90) Chronic constipation (564.00) (K59.09) Chronic low back pain (724.2) (M54.5) Degeneration of intervertebral disc of lumbar region (722.52 ) (M51.36) Gastritis (535.50) (K29.70) Insomnia (780.52) (G47.00) Osteoporosis, post-menopausal (733.01) (M81.0) Depression (311) (F32.9) Preoperative examination (V72.84) (Z01.818) Toenail deformity (703.9) (L60.8) Allergies and Adverse Reactions Bactrim (Allergy) Sulfa Drugs (Allergy) Vioxx TABS (Allergy) Medications busPIRone HCl - 15 MG Oral Tablet; take 1 tablet by [facility] three times a day DO Marlo Nieto Start: 17-Apr-2018 Quantity: 90 Refills: 3 Omeprazole 20 MG Oral Capsule Delayed Release; Take 1 capsul e twice daily Refills: 0 Natural Fiber Laxative POWD; USE DIRECTED. Refills: 0 Magnesium 200 MG Oral Tablet; TAKE 1 TABLET DAILY DIRECTE D. Start: 07-Jun-2017 Refills: 0 Multi-Vitamin Oral Tablet; TAKE 1 TABLET DAILY. Start: 07-Jun-2017 Refills: 0 Stool Softener TABS Refills: 0 valACYclovir HCl - 500 MG Oral Tablet; TAKE 1 TABLET T WICE DAILY. DO Marlo Nieto Quantity: 180 Refills: 1 Triamcinolone Acetonide 0.1 % External Cream; USE DIRECTE D. DO Marlo Nieto Start: 30-Jan-2018 Quantity: 80 Refills: 0 OxyCONTIN 40 MG Oral Tablet ER 12 Hour A buse-Deterrent; Take 1 tablet every 12 hours DO Marlo Nieto Start: 01-Jul-2017 Quantity: 60 Refills: 0 oxyCODONE-Acetaminophen 5-325 MG Oral Tablet; TAKE 1 T ABLET Every 4 hours PRN DO Marlo Nieto Start: 01-Jul-2017 Quantity: 150 Refills: 0 Cyclobenzaprine HCl - 10 MG Oral Tablet; take 1 tablet three times a day DO Marlo Nieto Start: 06-Jul-2018 Quantity: 90 Refills: 0 Furosemide 20 MG Oral Tablet; TAKE 1 TABLET BY MOUTH EVERY D AY DO Marlo Nieto Start: 03-Jun-2018 Quantity: 90 Refills: 1 LORazepam 0.5 MG Oral Tablet; TAKE 1 TABLET DAILY NEEDED. DO Marlo Nieto Start: 07-Jun-2017 Quantity: 30 Refills: 1 Fluticasone Propionate 50 MCG/ACT Nasal Suspension; USE 2 SPRAYS IN EACH NOSTRIL ONCE DAILY DO Marlo Nieto 16 GM Bottle Quantity: 3 Refills: 3 Calcitonin ([place]) 200 UNIT/ACT Nasal S olution; INSERT 1 SQUIRT IN ONE NOSTRIL EVERY DAY, ALTERNATING EACH NOSTRIL. DO Marlo Nieto Start: 04-Jul-2017 Quantity: 3 3.7 ML Bottle Refills: 3 buPROPion HCl - 75 MG Oral Tablet; 1 pill daily DO Jair Nieto Start: 21-Aug-2018 Quantity: 30 Refills: 1 Sertraline HCl - 100 MG Oral Tablet; TAKE 1 TABLET BY MOUTH EVERY DAY DO Marlo Nieto Start: 16-Sep-2018 Quantity: 90 Refills: 0 Restasis 0.05 % Ophthalmic Emulsion; INS TILL 1 DROP IN BOTH EYES EVERY 12 HOURS DAILY. DO Marlo Nieto Start: 03-Apr-2018 Quantity: 1 30 x [address] as Cont Refills: 0 Temazepam 15 MG Oral Capsule; TAKE 1 CAPSULE AT BEDTIM E NEEDED. DO Marlo Nieto Start: 01-Jul-2017 Quantity: 30 Refills: 0 Procedures In-House FIT (Fecal Immunochemical Test) Date: 05-Aug-2018 History of Hernia Repair Status: Complet ed History of neck surgery Status: Complete d Immunizations Prevnar 13 Intramuscular Suspension On: 31-Mar-2015 Influenza On: 05-Feb-2017 Pneumococcal polysaccharide vaccine, 23 valent On: 7 Flublok Quadrivalent 0.5 ML Intramuscular Solution Pre filled Syringe On: 19-Feb-2018 13:11 Lot #: [id number], [employer] PASTEUR Family History Grandmother Family history of tremor (V17.2) (Z82.0) Status: Active Sister Family history of Diabetic polyneuropathy (250.60) (E11.42) Status: Active Family history of hypertension (V17.49) (Z82.49) Status: Act duyen Father Family history of Alcohol abuse (305.00) (F10.10) Status: Ac tive Family history of malignant neoplasm of breast (V16.3) (Z80. 3) Status: Active Family history of depression (V17.0) (Z81.8) Status: Active Family history of cardiac disorder (V17.49) (Z82.49) Status: Active Grandmother Family history of malignant neoplasm of breast (V16.3) (Z80. 3) Status: Active Mother Family history of malignant neoplasm of breast (V16.3) (Z80. 3) Status: Active Family history of depression (V17.0) (Z81.8) Status: Active Family history of cardiac disorder (V17.49) (Z82.49) Status: Active Social History - Smoking Status Former smoker Plan of Treatment Planned Encounters Appointment; Marlo Nieto DO Start: 25-Dec-2018 13:45 Request Planned Observations Planned Goals not documented Results X-Ray Chest Preadm Testing Laboratory: [facility] Diagnostic (Pending) Imaging [address] [facility] 08-Sep-2018 14:10 X-Ray Chest Preadm Testing (CXRPRE) [facility], [place] [phone] XRay Report Patient: RAQUEL MCCRACKEN Admit Date: 09/08/18 MR#: [id number] Address[address]: [address] Acct ID:[id number] Address2: [address] Date: 1955 [facility] Zip: [place] [address] Age: 63 Location: [facility] Sex: F Room/Bed: Att Phy: Sabas Mckeon D.O. Diagnosis: LUMBAR SPINAL STENOSIS W/OUT NEUROGENIC CLAUDICATI Talai Phy: Marlo Nieto MD Service Date: [facility] Phy: Marlo Nieto MD Interpreting Phy: Shiela Walters MD Admit Phy: Ordering Phy: Sabas Mckeon D.O. cc: XR chest Pre-admission PA/Lat CLINICAL HISTORY: pat preoperative evaluation COMPARISON STUDY: 03/30/2015 FINDINGS: The bones soft tissues and hemidiaphragms are normal. The cardiomediastinal silhouette isnormal. The lungs are clear. The pulmonary vasculature is normal. Mild emphysematous change IMPRESSION: Negative chest. Mild emphysematous change The above report was generated using voice recognition software. It may contain grammatical, syntax or spelling errors. Electronically signed by: Mario Walters M.D. 09/08/2018 2:11 PM Dictated: 09/08/18 1410 Transcribed: 09/08/18 1410 Urine rflx Microscopic Laboratory: [facility] Laboratory Comments : Cath N (Pending) [address] [facility] [address] tel: 08-Sep-2018 13:45 Urine Color Yellow Urine Appearance Clear Range: Clear Urine Specific [place] 1.014 Range: 1.0 00-1.030 Urine Ph 5.0 Range: 4.5-7.5 Urine Protein(Dipstick) Negative Range: Negative Urine Glucose(Dipstick) Negative Range: Negative Urine Ketones Negative Range: Negative Urine Bilirubin Negative Range: Negativ e URINE BLOOD HGB Negative Range: Negativ e Urobilinogen Negative Range: Negative Nitrite Urine Negative Range: Negative Urine Leukocyte Esterase Range: Negativ e Negative PT/INR (Pending) Laboratory: [facility] Laboratory [address] [facility] [id number] tel: 08-Sep-2018 13:45 Prothrombin Time 10.7 {Seconds} Range: 9.0-12.0 Seconds INR 1.0 Range: 0.9-1.1 PTT (Pending) Laboratory: [facility] Laboratory [address] [facility] [address] tel: 08-Sep-2018 13:45 PTT PATIENT 23.7 {Seconds} Range: 21.0- 31.0 Seconds Comments: Therapeuti c APTT range is 46.0 - 66.4 seconds PARTIAL THROMBOPLASTIN RATIO 0.9 FL lumbar spine 2-3V Laboratory: [facility] Diagnostic (Pending) Imaging [address] [facility] 19-Sep-2018 10:18 FL lumbar spine 2-3V [facility], [place] [phone] Fluoroscopy Report Patient: RAQUEL MCCRACKEN Admit Date: 09/19/18 MR#: [id number] Address[address]: [address] Acct ID:[id number] Address2: [address] Date: 1955 [facility] Zip: [place] [address] Age: 63 Location: [facility] Sex: F Room/Bed: Att Phy: Sabas Mckeon D.O. Diagnosis: LUMBAR SPINAL STENOSIS W/OUT NEUROGENIC CLAUDICATI Talia Phy: Marlo Nieto MD Service Date: [facility] Phy: Marlo Nieto MD Interpreting Phy: Gal Jean-Baptiste MD Admit Phy: Ordering Phy: Sabas Mckeon D.O. cc: LUMBAR SPINE, INTRAOPERATIVE FLUOROSCOPY HISTORY: L2-L5 decompression and fusion. FLUOROSCOPY TIME: 23 seconds. FINDINGS: Intraoperative fluoroscopy was provided for the lumbar spine. 3 fluoroscopic spot images were obtained. Posterior decompression fusion from L2 through L5 with pedicle screws and rods. The hardware appears intact. IMPRESSION: Fluoroscopy provided for a L2-L5 posterior decompression and fusion. Electronically signed by: Sarath Jean-Baptiste M.D. 09/19/2018 10:19 AM Dictated: 09/19/18 1018 Transcribed: 09/19/18 1018 Vital Signs 11-Sep-2018 12:51 Systolic 104 mm[Hg] Diastolic 68 mm[Hg] BMI Calculated 22.07 kg/m2 Weight 113 lb Heart Rate 80 /min Height 60 in BSA Calculated 1.46 m2 Respiration 16 /min Encounters Appointment; Raquel Chavez PA-C 11-Sep-2018 13:00 Encounter Diagnosis: Problem not documented Appointment; Marlo Nieto DO 05-Aug-2018 13:00 Encounter Diagnosis: Problem not documented Appointment; Lizet Tapia 05-Aug-2018 12:30 Encounter Diagnosis: Problem not documented Appointment; Marlo Nieto DO 03-Apr-2018 13:00 Encounter Diagnosis: Problem not documented Appointment; [facility], Nurse 19-Feb-2018 12:30 Encounter Diagnosis: Problem not documented Appointment; Marlo Nieto DO 31-Dec-2017 13:00 Encounter Diagnosis: Problem not documented Appointment; Marlo Nieto DO 26-Sep-2017 11:30 Encounter Diagnosis: Problem not documented Appointment; Marlo Nieto DO 05-Sep-2017 11:00 Encounter Diagnosis: Problem not documented Appointment; Marlo Nieto DO 26-Jul-2017 11:30 Encounter Diagnosis: Problem not documented Appointment; Marlo Nieto DO 01-Jul-2017 13:30 Encounter Diagnosis: Problem not documented Appointment; Gurjit Branch M.D. 26-Dec-2016 14:20 Encounter Diagnosis: Problem not documented Appointment; Marlo Nieto DO 25-Dec-2018 13:45 Encounter Diagnosis: Problem not documented
[2018-09-23] MEDS: POLYETHYLENE (MIRALAX) 17 GM PACK PO SCH (00:03)
[2018-09-23] MEDS: OXYCODONE HCL IR 5 MG TAB (IMMEDIATE RELEASE) PO PRN ×3 (00:08→11:45)
[2018-09-23] MEDS: CALCIUM 600MG + VIT D 400 IU TAB PO SCH (08:33)
[2018-09-23] MEDS: BusPIRone 15 MG TAB PO SCH (08:33)
[2018-09-23] MEDS: CALCITONIN SALMON NA 200 IU/AC 3.7 ML BTL SCH (08:34)
[2018-09-23] MEDS: FUROSEMIDE 20 MG TAB PO SCH (08:34)
[2018-09-23] MEDS: cycloSPORINE (RESTASIS) OP SCH (08:35)
[2018-09-23] MEDS: VALACYCLOVIR HCL 500 MG TABLET PO SCH (08:35)
[2018-09-23] MEDS: buPROPion HCl 75 MG TABLET PO SCH (08:36)
[2018-09-23] MEDS: OXYCODONE HCL 40 MG TABCR (OXYCONTIN) PO SCH (08:40)
--- NOTE | 2018-09-23 16:23 | Discharge Summary ---
Date of Service September 23, 2018 Admission HPI Per Admitting Provider This is a 63-year-old female who presents with chronic persistent back and leg pain. After failing extensive course of nonoperative care she is here for surgical intervention. Principal Diagnosis Lumbar spinal stenosis with neurogenic claudication Discharge Data Allergies Allergy/AdvReac Type Severity Reaction Status Date / Time Bactrim Allergy Unknown RASH Verified 04/25/15 05:36 sulfamethoxazole Allergy Unknown RASH Verified 09/19/18 06:44 trimethoprim Allergy Unknown RASH Verified 09/19/18 06:44 Consultations 09/19/18 12:45 Consult Case Management - Discharge Planning Routine Consult Hospitalist Routine Procedures Performed Operation Date: 09/19/18 07:45 Actual Procedures p L2-L5 Decomprssion and Fusion with Interbody cage at L4-L5(Not Applicable) - Sabas Mckeon DO Ordered Studies 09/19/18 07:45 FL fluoroscopy <1hr Routine FL lumbar spine 2-3V Routine Hospital Course (1) Spinal stenosis, lumbar region with neurogenic claudication: Patient underwent multilevel lumbar decompression and fusion tolerated this well was taken to the orthopedic floor postoperative. Postop day #1 she is up and ambulating with physical therapy progress throughout the weekend. ANNA MARIE drain decreasing appropriately. Subsequently discharged home postop day #4. Discharge orders and instructions can be found chart for further review. Total Time Total Time Spent Total Time Spent (In Minutes): 20 minutes Discharge Plan Discharge Items Patient Disposition: Home - Self-Care Reason For Visit: LUMBAR SPINAL STENOSIS W/OUT NEUROGENIC CLAUDICATI Discharge Diagnosis: Lumbar spinal stenosis with neurogenic claudication Discharge Goals: Decrease discomfort Activity: Per 'Additional Instructions' section Non-emergency contact: Primary Care Provider Call non-emergency contact if: you have any medication questions Follow-up/Referrals: Marlo Francis DO [Primary Care Provider] - Diet: Regular Addtl Provider Instructions: ACTIVITY RECOMMENDATIONS: SELF CARE INSTRUCTIONS AFTER THORACIC/LUMBAR FUSIONS 1. You may walk to your tolerance. It is good exercise for your legs and back. Expect some back and intermittent leg aches and pains. 2. You may perform "counter-top" level activities (make a sandwich, anupam with a project, etc.). 3. No bending or lifting of more than 10 pounds or back twisting of any nature (roll like a log when turning in bed). 4. You may ride in a car for 20-30 minutes at a time. No driving until after your first visit with your doctor. 5. Frequent changes of position and restricting sitting to 30 minutes at a time will help limit the amount of back spasms and stiffness you may experience. 6. You may discontinue the use of ambulatory aids (cane, crutches, etc.) once your strength and confidence allow. 7. You may intelligence applications the shower and let water strike your incision when you arrive home at least once daily. Do not take a tub bath, sit in a hot tub or go into a swimming pool until after your first recheck in the office. SPECIAL CARE INSTRUCTIONS: VERY IMPORTANT TO READ AND REVIEW A. Your surgical incision has been closed with a cosmetic suture under the skin that will dissolve in about 6 weeks. In 14 days, you can use a pair of clean scissors and cut the suture that is left outside of the skin at the ends of your incision. 1. The small skin tapes can be removed 7 days after surgery if they have not fallen off by that point. 2. You may keep the wound open to air as much as possible to promote healing after post-op day number 5 unless told otherwise by your doctor. 3. If you think the wound looks like it is becoming infected (redness or worsening drainage) and/or you are experiencing fever, chill or worsening back pain and muscle spasms, contact the office so that we may evaluate you as soon as possible. B. Complications are uncommon, but please contact us if you have any signs or symptoms of: 1. wound infection (fever higher than 102.5 degrees F, redness, separation of wound, drainage, or increasing pain from the incision) 2. blood clots in legs (pain, swelling, redness and warmth in legs) 3. urinary tract infection (fever higher than 102.5 degrees F, burning upon urination or increased frequency of urination) 4. nerve problems (inability to walk on your toes or heels, numbness, loss of bowel or bladder control) 5. any other symptoms that concern you C. Please call the office at if you have any concerns or questions about your operation or recovery. D. No smoking! Smoking drastically decreases the chance of a solid fusion. E. Do not take any anti-inflammatory medications (Indocin, Advil, Motrin, Aspirin, Naprosyn, etc.) as these may inhibit the chance of a solid fusion. Tylenol is okay to take for pain. MANAGING PAIN AFTER SPINAL SURGERY 1. Narcotic medication is intended for short-term use and will be provided for surgical pain. Surgical pain usually lasts for a period of 4-6 weeks. Narcotic medication includes Percocet, Vicodin, Darvocet, Tylenol #3 or Lortab. 2. Longer-term pain is more appropriately treated with non-narcotic medication such as Tylenol ES. 3. Muscle spasm is not appropriately treated with narcotics. Muscle relaxers such as Soma, Flexeril or Skelaxin can be used along with Tylenol ES. 4. Remember that we all live with some "aches and pains". This is not unusual or uncommon after an injury or as we get older. a. Back pain is expected and may include muscle spasms for 4 to 6 weeks after surgery. The pain should gradually improve. If the pain worsens for no apparent reason, please contact the office. b. Intermittent leg pain may also be experienced and should not be concerned about unless it worsens for no apparent reason. If so, please contact the office. 5. We will provide appropriate medication within the normal guidelines of their prescribed use. We will also be very cautious and aware of potential abuse and extended duration of patients' medication needs. a. Pain medications are for your comfort and to assist with sleep and rest so that the tissue can heal. They are not provided in order to return to normal activity and should not be used through the day. To do so or worsening pain at night can result from ongoing tissue damage and development of tolerance to the prescribed medicine. 6. Please allow 2-3 days to process refills. Prescriptions will not be mailed but must be picked up at the office. FOLLOW UP VISIT: Keep your scheduled follow-up appointment. Any questions, please call the office at . Prescriptions: New oxycodone 5 mg Tablet 5 mg PO Q4H PRN (Reason: Pain, Severe) Qty: 30 RF: 0 ondansetron HCl 4 mg Tablet 4 mg PO Q6H Qty: 30 RF: 0 Continued cyclobenzaprine 10 mg Tablet 10 mg PO TID PRN (Reason: MUSCLE SPASMS) RF: 0 sennosides [Senna Laxative] 8.6 mg Tablet 6 tab PO BID PRN (Reason: Constipation) RF: 0 valacyclovir [Valtrex] 500 mg Tablet 500 mg PO BID RF: 0 oxycodone-acetaminophen [Percocet] 5-325 mg Tablet 1 tab PO UD PRN (Reason: Pain) RF: 0 calcium carbonate [Calcium 600] 600 mg calcium (1,500 mg) Tablet 600 mg PO DAILY RF: 0 lorazepam [Ativan] 0.5 mg Tablet 0.5 mg PO UD PRN (Reason: Anxiety) RF: 0 temazepam [Restoril] 15 mg Capsule 15 mg PO HS PRN (Reason: Insomnia) RF: 0 calcitonin (salmon) 200 unit/actuation [place],Non-Aerosol 1 spray intranasal DAILY RF: 0 bupropion HCl 75 mg Tablet 75 mg PO QAM RF: 0 docusate sodium [Stool Softener] 100 mg Capsule 6 tab PO BID RF: 0 furosemide [Lasix] 20 mg Tablet 20 mg PO QAM RF: 0 fluticasone propionate 50 mcg/actuation [place],Suspension 1 spray INTRANASAL HS RF: 0 buspirone 15 mg Tablet 15 mg PO TID RF: 0 cholecalciferol (vitamin D3) [Vitamin D3] 1,000 unit Capsule 1,000 unit PO DAILY RF: 0 Prilosec OTC 20 mg Tablet,Delayed Release (Dr/Ec) 20 mg PO BID RF: 0 oxycodone [OxyContin] 40 mg Tablet,Oral Only,Ext.Rel.12 Hr 40 mg PO BID PRN (Reason: Pain) RF: 0 Magnesium Citrate + Vitamin B 6 1 dose PO BID RF: 0 Restasis 0.05 % Dropperette 1 drp OPHTHALMIC (EYE) DAILY RF: 0 Stand-Alone Forms: [employer], [facility] [employer]/Other Patient Handouts: Surgery Prevent DVT After, ED Stockings Stephen Discharge Orders: Discharge Order (Routine); Ordered 09/23/18 Ordered By: Sabas Mckeon Admission Data Admit Date/Time: 09/19/18 10:34 Attending Provider: Sabas Mckeon Admit Provider: Sabas Mckeon Primary Care Provider: Marlo Francis Other Providers: Igor Rosenberg Service: Surgical Services Other Interventions: Discharge Summary Assessment (RN) Last Done: 09/23/18 11:52 DC Date/Time DO NOT enter until pt leaves facility: 09/23/18 12:23
== END 2018-09-23 12:23 | disposition home or self-care (01) | DRG 454 ==
LOC: ASU 05:49 → 3E 10:34